=== PATIENT | male | born 1950 | race Caucasian/White ===

== ENCOUNTER 2019-01-14 07:34 | Inpatient (IN) | payer MEDICARE, OTHER ==
[2019-01-03 09:39] LABS: ABSOLUTE EOSINOPHILS 0.1 thou/uL (0.0-0.7); ABSOLUTE LYMPHOCYTES 1.3 thou/uL (0.8-5.3); ABSOLUTE MONOCYTES 0.6 thou/uL (0.0-1.2); ABSOLUTE NEUTROPHILS 4.5 thou/uL (1.6-8.1); BASOPHILS 0.6 %; EOSINOPHILS 0.9 %; HEMATOCRIT 39.5 % (42.0-52.0); HEMOGLOBIN 13.7 gm/dL (14.0-18.0); LYMPHOCYTES 19.4 %; MCHC 34.5 g/dL (28.0-37.0); MCV 92.5 fL (80.0-100.0); MONOCYTES 8.7 %; MPV 7.9 fl. (7.2-11.1); NUCLEATED RBCS 0 /100WBC; PLATELET COUNT* 338 thou/uL (150-400); POLYS 70.4 %; RBC 4.27 mil/uL (4.50-6.00); RDW-CV 14.1 % (10.5-14.5); WBC 6.5 thou/uL (4.0-11.0)
[2019-01-03 09:50] LABS: APTT 25.4 Seconds (25.0-31.3); PROTIME 10.3 Seconds (9.20-11.50)
[2019-01-03 09:52] LABS: ALBUMIN 3.7 g/dL (3.4-5.0); CALCIUM 8.9 mg/dL (8.5-10.1); CREATININE 0.8 mg/dL (0.6-1.3); POTASSIUM 3.9 mmol/L (3.5-5.1); TOTAL BILIRUBIN 0.4 mg/dL (<0.1-1.0)
[2019-01-03 10:42] LABS: ESR (SEDRATE) 8 mm/hr (0-20)
[2019-01-04 02:07] LABS: GLYCOHEMOGLOBIN (HGB A1C) 5.6 % (4.8-5.6)
[~2019-01-14] VITALS: Ht 188 cm; Wt 111.1 kg
[~2019-01-14 07:34] MED LIST: AMBIEN 5 MG TABL5 M1 PO; PRILOSEC OTC20 MG PO
[2019-01-14 19:30] VITALS: BP 149/63
[2019-01-14 23:59] VITALS: BP 130/61
[2019-01-15 03:57] VITALS: BP 121/63
[2019-01-15 04:38] LABS: HEMATOCRIT 34.7 % (42.0-52.0); HEMOGLOBIN 12.2 gm/dL (14.0-18.0)
--- NOTE | 2019-01-15 04:44 | NUR ---
PT A&O X 4, VSS ON RA. NO C/O PAIN. DENIED N/V. VOIDED WITHOUT ISSUES. DRESSING TO RT HIP C/D/I. ELISE PAIZ, SCDS, ICE PACKS IN PLACE. IV FLUID RUNNING ORDERED. WILL CONTINUE TO MONITOR.
[2019-01-15 07:25] VITALS: BP 134/69
[2019-01-15 09:20] VITALS: BP 134/69
[2019-01-15] MEDS ORDERED: MIRALAX119 GM PO (09:20)
[2019-01-15] MEDS ORDERED: ELIQUIS2.5 MG PO (11:31)
[2019-01-15] MEDS ORDERED: OXYCODONE HCL 55 MG PO (11:33)
[2019-01-15] MEDS ORDERED: TRAMADOL 50 MG50 MG PO (11:33)
[2019-01-15 12:25] VITALS: BP 134/69
--- NOTE | 2019-01-15 13:00 | NUR ---
PT.UP IN RECLINER. HE IS READY TO GO HOME TODAY. HIS WILL PICK HIM UP THIS AFTERNOON. SHE CAN ASSIST HIM NEEDED AT HOME. HE HAS A FWW. CM CALLED IN PRESCRIPTION FOR ELIQUIS WRITTEN TO HIS PHARMACY. COPAY WAS $28. INFORMED PT. HE KNOWS NO THERAPY IS ORDERED AT THIS TIME. HE IS TO WALK AROUND HIS HOUSE WITH WALKER AND DO GENTLE EXERCISES THAT THERAPY GAVE HIM. WHEN HE F/U WITH , HE WILL DECIDE IF PT.NEEDS OUTPT.THERAPY. HE IS NORMALLY INDEPENDENT AT HOME.
[2019-01-15 14:34] VITALS: BP 134/69
--- NOTE | 2019-01-15 14:34 | NUR ---
PT GIVEN DISCHARGE INFORMATION, CARE NOTES, AND PRESCRIPTIONS. IV REMOVED. PT LEFT VIA WHEELCHAIR WITH NURSING STAFF TO HOME WITH FAMILY. FALL RISK PRECAUTIONS IN PLACE. HOURLY ROUNDING COMPLETED.
--- NOTE | 2019-01-22 12:41 | OP ---
[address] [address] OPERATIVE REPORT Name: CORY TREVIÑO Room: [address] IN ..#: [id number] Admission: 01/14/19 Attend Phys: Alex Rice MD Discharge: 01/15/19 Date of : 46 Report #: [id number] THIS REPORT FOR: //name// CC: Phuc Matthews DATE OF SERVICE: 01/14/2019 PREOPERATIVE DIAGNOSIS: Right hip severe osteoarthritis. POSTOPERATIVE DIAGNOSIS: Right hip severe osteoarthritis. OPERATION PERFORMED: Right total hip arthroplasty with an anterior approach. SURGEON: Gustabo Matthews DO SALES REPRESENTATIVE PUBLICATIONS: Iris Kulkarni PA-C and Deyvi Benitez DO. ANESTHESIA: General. ESTIMATED BLOOD LOSS: 275 mL. ANTIBIOTICS: 2 g IV Ancef was given within 1 hour of skin incision. DRAINS: None. SPECIMENS: None. COMPLICATIONS: None. CONDITION: Stable. DISPOSITION: To PACU to the Med/Surg floor. IMPLANTS: Biomet total hip system was used with the following components: 1. A size 16 x 117 mm high offset Taperloc micro femoral stem. 2. A size 40 ceramic head. 3. A -6 mm taper adapter. 4. A 60 mm G7 finned acetabular shell, 4-hole. 5. A 40 mm G7 acetabular liner and two 6.5 mm bone screws, 30 and 25 mm in length. INDICATIONS FOR SURGERY: The patient is a pleasant 68-year-old male who has been followed in orthopedic clinic regarding his longstanding right hip pain, which has been going on for several years. X-rays were consistent with severe degenerative changes with loss of joint space, subchondral sclerosis, and [facility] [address] [place] [address] OPERATIVE REPORT Name: CORY TREVIÑO Demarcus Room: [address] IN [facility].#: [id number] Admission: 01/14/19 Attend Phys: Alex Rice MD Discharge: 01/15/19 Date of : 46 Report #: [id number] osteophytic changes. He had previously undergone left total hip arthroplasty at an outside facility. In regards to the right hip, he does have progressive pain despite conservative measures with activity modifications, rest, attempted weight loss and nonsteroidal anti-inflammatory medications. Therefore, we did discuss with him proceeding with a right total hip arthroplasty. Risks, indications, and treatment alternatives were reviewed. The patient has informed consent signed and attached to the chart. PROCEDURE OF PROCEDURE: The patient was taken to the operating suite and placed on the [place] table in the supine position, where general anesthesia was then induced. The lower extremities were then placed within well-padded boots and placed within the spars of the [place] table. The right hip region was then sterilely prepped and draped free in the usual fashion. A time-out was then performed to confirm that our safety checklist has been completed and all the OR personnel was in agreement. A longitudinal incision was marked out over the anterior aspect of the hip, approximately 2 cm lateral and distal to the anterior superior iliac spine. Incision was made through the skin approximately 8 cm in length. Sharp dissection was carried down through skin and subcutaneous tissue. Hemostasis was achieved with electrocautery. The tensor fascia was then divided longitudinally and the blunt dissection was carried down to develop a plane between the sartorius and the tensor fascia ami. Retractors were then placed exposing the circumflex vessels, which were treated with the Aquamantys before being cauterized. Appropriate retractors were then placed around the femoral neck and the capsule was also pretreated with the Aquamantys. An anterior capsulectomy was then performed exposing the femoral head and neck. Retractors were then placed intracapsular and a femoral neck cut was marked out and then made with the reciprocating saw, approximately 1 cm proximal to the lesser trochanter. The femoral head and neck are then removed with bone tenaculums and measured on the back table. Electrocautery was then used to excise the labral remnants as well as the pulvinar tissue. Sequential reaming of the acetabulum was then performed under direct visualization and under C-arm fluoroscopy guidance. The external guide was also utilized. Once appropriate reaming was completed, the acetabular bony bed was then inspected and there was excellent bleeding bone. The final acetabular shell was dipped in water and then vancomycin powder and was then impacted into position. Once again utilizing our direct C-arm fluoroscopy and external guide to confirm appropriate positioning. We then confirmed acetabular component which was in appropriate position and then 2 acetabular bone screws were then drilled and the manhole cover was then placed. Once again, C-arm fluoroscopy was used to confirm appropriate positioning of the acetabular shell as well as bone screws. The high wall liner was then placed within the anterior superior region and impacted into position. The liner was confirmed to be locked into position. The femur was then externally rotated. Capsular releases were performed to improve visualization. The leg was furtherly externally rotated to approximately 125 degrees and the leg was extended and adducted. The box osteotome and then a rattail rasp were used to gain access to the intramedullary canal followed by [address] [address] OPERATIVE REPORT Name: CORY TREVIÑO Room: [address]#: [id number] Admission: 01/14/19 Attend Phys: Alex Rice MD Discharge: 01/15/19 Date of : 46 Report #: [id number] sequential broaching to the proximal femur. This was done up to a size 15, which then gave us excellent fit and fill within the proximal femur. A high offset neck was then trialled with multiple sized head length adapters. Ultimately, a -6 mm adapter gave us excellent leg length and stability. The leg was taken out of the [place] table spar and taken through full range of motion and found to have excellent stability. At this time, the hip was dislocated and the trial neck and head were removed. The wound was once again copiously irrigated. The trial head was removed and once again wound was copiously irrigated. The final ceramic head with the -6 adapter was then impacted onto the [place] taper of the femoral stem and the hip was finally reduced. Final C-arm fluoroscopy images were taken to confirm the appropriate leg length and positioning of all the components. A layered closure was then performed with a #1 Stratafix suture on the tensor fascia layer, 2-0 Monocryl was used in an inverted fashion on the subcutaneous layer followed by 3-0 running subcuticular Stratafix suture. Skin glue was applied and allowed to dry, followed by a Mepilex dressing. The patient was found to have tolerated the procedure well and returned to the PACU in stable condition with no apparent complications. Dr. Gustabo Matthews was present for all the procedure. <ELECTRONICALLY SIGNED> By: Bairon Painter DO 01/22/19 1241 [id number] 1949Gustabo Matthews DO /nt
== END 2019-01-15 14:35 | disposition home or self-care (01) | DRG 470 ==
LOC: M.PRE 07:34 → M.ORTHSURG 12:26 → M.TBA 12:26 → M.ORTHSURG 13:54 → M.PRE 15:40 → M.ORTHSURG 16:56
PROVIDERS: Orthopaedic Surgery; ADMIT Internal Medicine
PROC: 0SR903Z Replacement of Right Hip Joint with Ceramic Synthetic Substitute, Open Approach (ICD-10-PCS; principal; 2019-01-14)
DX: M16.11 Unilateral primary osteoarthritis, right hip (principal); D62 Acute posthemorrhagic anemia; Z96.642 Presence of left artificial hip joint; Z79.899 Other long term (current) drug therapy